=== PATIENT | female | born 1985 | race Caucasian/White ===

== ENCOUNTER 2020-03-20 19:13 | Emergency (ER) | payer MEDICARE ==
[2020-03-20 19:49] LABS: Bilirubin Negative (Negative); Blood, Urine Negative (Negative); Clarity Clear (Clear); Glucose, Urine (Dipstick) Negative (Negative); Ketone, Urine Negative (Negative); Leukocyte Negative (Negative); Nitrite Positive (Negative); Protein, Urine (Dipstick) Negative (Neg-Trace); Specific Gravity, Urine 1.025 (1.005-1.030); Urobilinogen 0.2 mg/dL (Less than 2); pH, Urine 5.5 (5.0-9.0)
[2020-03-20 19:54] LABS: RBC/HPF 0-3 HPF (0-3)
[2020-03-20] MEDS ORDERED: Azithromycin 250 MG TAB ONE (19:54)
[2020-03-20] MEDS ORDERED: cefTRIAXone\\ROCEPHIN 500 MG VIAL ONE (19:54)
[2020-03-20 19:55] LABS: Bacteria/HPF 2+ HPF (None Seen); Squamous Epithelial 0-3 HPF (0-3)
== END 2020-03-20 20:34 | disposition home or self-care (01) ==
LOC: BURERS 19:13
DX: N39.0 Urinary tract infection, site not specified (principal); Z20.2 Contact with and (suspected) exposure to infections with a predominantly sexual mode of transmission; Z86.73 Personal history of transient ischemic attack (TIA), and cerebral infarction without residual deficits; F32.9 Major depressive disorder, single episode, unspecified; F17.210 Nicotine dependence, cigarettes, uncomplicated
CPT/HCPCS: 81003; 81015; 87077; 87086; 87186; 96372; 99283; J0696

== ENCOUNTER → 2020-04-08 | Emergency (ER) | payer MEDICARE, OTHER ==
[2020-04-09 12:34] LABS: SARS-CoV-2 MS2 Positive; SARS-CoV-2 N Gene Negative; SARS-CoV-2 S Gene Negative; SARS-CoV-2 by NAA Not Detected (NotDetected); SARS-CoV-2 orf1ab Negative
== END ==
LOC: BURERS 09:43
DX: B34.9 Viral infection, unspecified (principal); Z20.828 Contact with and (suspected) exposure to other viral communicable diseases; F32.9 Major depressive disorder, single episode, unspecified; F17.210 Nicotine dependence, cigarettes, uncomplicated
CPT/HCPCS: 87635; 99283; U0003

== ENCOUNTER 2020-04-14 15:36 | Emergency (ER) | payer MEDICARE, OTHER ==
[2020-04-14] MEDS ORDERED: Boostrix 0.5 ML (Tdap) VIAL ONE (16:54)
[2020-04-14] MEDS ORDERED: Lidocaine 1% w/Epinephrine 1:100K 20 ML VIAL ONE (16:54)
[2020-04-14] MEDS ORDERED: Bacitracin 1 PK ONE (18:41)
--- NOTE | 2020-04-14 18:48 | RAD ---
LEFT ANKLE THREE VIEWS: Date: 04-14-2020 FINDINGS: No fracture or opaque foreign body was seen. All bones appear intact. A small calcaneal spur was note d. IMPRESSION: No acute finding. POS: HOME
--- NOTE | 2020-04-14 18:57 | RAD ---
LEFT FOOT THREE VIEWS: Date: 04-14-2020 FINDINGS: No fracture or opaque foreign body was seen. All bones appear intact. A tiny calcaneal spur was noted . A tiny density just lateral to the fifth MP joint is most likely not related to the current trauma, but the findings should be correlated with the site of clinical injury. IMPRESSION: No acute findings. POS: HOME
== END 2020-04-14 19:05 | disposition home or self-care (01) ==
LOC: BURERS 15:36
DX: S91.312A Laceration without foreign body, left foot, initial encounter (principal); F32.9 Major depressive disorder, single episode, unspecified; F17.210 Nicotine dependence, cigarettes, uncomplicated; Z86.73 Personal history of transient ischemic attack (TIA), and cerebral infarction without residual deficits; Z23 Encounter for immunization; W26.8XXA Contact with other sharp object(s), not elsewhere classified, initial encounter
CPT/HCPCS: 12002; 90471; 90715